=== PATIENT | male | born 2000 | race Caucasian/White ===

== ENCOUNTER 2023-07-18 12:05 | Outpatient (CLI) | payer OTHER, SELFPAY ==
--- NOTE | ~2023-07-18 | XR_ITS ---
EXAM: XR knee LT 3V DATE: 07/18/2023 12:24 HISTORY: S89.92XA - Unspecified injury of left lower leg, initial ... . COMPARISON: None available. FINDINGS: Normal mineralization. No fracture or dislocation. No lytic or blastic lesion. Joint space s are maintained. No erosion or periosteal change. Soft tissues within normal limits. IMPRESSION: Normal left knee radiograph findings. Reviewed, dictated and finalized at location K. 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
== END 2023-07-18 12:06 ==
LOC: MICIMG 12:08
PROVIDERS: PCP Nurse Practitioner Adult Health; Visit Provider Nurse Practitioner Adult Health
DX: S89.92XA Unspecified injury of left lower leg, initial encounter (principal)
CPT/HCPCS: 73562

== ENCOUNTER 2023-07-29 13:56 | Outpatient (CLI) | payer OTHER, SELFPAY ==
--- NOTE | ~2023-07-29 | CT_ITS ---
EXAMINATION: CT knee LT wo con DATE: 07/29/2023 14:14 INDICATION: Unspecified injury to the left lower leg TECHNIQUE: High resolution computed tomography (CT) of the left knee was performed without intravenou s contrast. Additional sagittal and coronal reconstructions were performed. Automated exposure contro l and iterative reconstruction technique were employed. The dose-length product was 716.59 mGy-cm. COMPARISON: None FINDINGS: Alignment is normal. No fracture. Joint spaces appear normal on nonweightbearing imaging with no oste ophytosis. No joint effusion. Soft tissues are unremarkable. IMPRESSION: 1. Normal CT of the left knee. Reviewed, dictated and finalized at location B.
== END 2023-07-29 13:57 | disposition home or self-care (01) ==
LOC: ANHIMG 13:58
PROVIDERS: PCP Family Medicine; Visit Provider Nurse Practitioner Adult Health
DX: S89.92XA Unspecified injury of left lower leg, initial encounter (principal); X58.XXXA Exposure to other specified factors, initial encounter
CPT/HCPCS: 73700

== ENCOUNTER 2023-10-01 07:06 | Outpatient (CLI) | payer OTHER, SELFPAY ==
--- NOTE | 2023-10-06 16:05 | WPDHOLTEREM ---
Holter/Event Monitor Holter/Event Monitor Date of procedure: 10/01/23 Holter/Event Procedure: 48 Hr Holter Monitor Indications: Chest pain Conclusion: 1. 48 hour holter monitor on 10/01/23. 2. Underlying rhythm is sinus rhythm. HR range 43-132 bpm; average HR 69 bpm. HR at 43 bpm was at 05:03. HR at 132 bpm was at 18:51. 3. There are 15 premature supraventricular complexes and 1 supraventricular couplet. No supraventricular tachycardia. 4. There are 62 premature ventricular complexes. No ventricular tachycardia. 5. No sinoatrial or atrioventricular blocks. No significant pauses greater than 2 seconds. 6. Patient reports symptoms of skipped beats and chest pain which demonstrate sinus rhythm, HR range 70-83 bpm.
== END 2023-10-01 10:48 ==
PROVIDERS: PCP Family Medicine; Visit Provider Physician Assistant Medical
DX: R07.89 Other chest pain (principal); R00.2 Palpitations
CPT/HCPCS: 93225; 93226

== ENCOUNTER 2023-11-14 09:00 | Outpatient (CLI) | payer OTHER, SELFPAY ==
--- NOTE | ~2023-11-14 | XR_ITS ---
EXAMINATION: XR_[id number]_CR DATE: 11/14/2023 09:27 INDICATION: Right knee pain TECHNIQUE: Standing AP and lateral views of the right knee were obtained COMPARISON: None. FINDINGS: Alignment is normal. No fracture. Joint spaces are normal. Soft tissues are unremarkable. No right kn ee joint effusion. IMPRESSION: 1. Normal right knee radiographs. Reviewed, dictated and finalized at location A.
== END 2023-11-14 09:01 ==
PROVIDERS: PCP Family Medicine; Visit Provider Nurse Practitioner Adult Health
DX: M25.561 Pain in right knee (principal)
CPT/HCPCS: 73560

== ENCOUNTER 2023-12-23 09:58 | Outpatient (CLI) | payer OTHER, SELFPAY ==
--- NOTE | 2023-12-23 10:16 | EST_ITS ---
Patient Info Name: Fabio Roblero Age: 23 years : 2000 Gender: Male Ht: 71 in Wt: 200 lbs BSA: 2.15 m2 HR: 67 bpm BP: 98 / 66 mmHg Heart Rhythm: Sinus Rhythm Exam Date: 12/23/2023 10:25 AM Exam Location: Echo Lab Patient Status: Outpatient Admit Date: 12/23/2023 Staff Ordering Physician: Jason Bettencourt DO Attending Provider: Jason Bettencourt DO Exercise Technologist: Tere Contreras CT Exercise Physician: Jason Bettencourt DO Exam Type: CA stress test treadmill Study Info A treadmill exercise stress test was performed. Summary 1. 1. Negative Bhavik exercise stress test for ischemic ST changes by ECG criteria. 2. 2. Good functional capacity, achieving 11 METs of workload. 3. 3. Appropriate HR response to exercise. 4. 4. Appropriate HR recovery at 1 minute post exercise. 5. 5. No imaging with stress testing. 6. 6. Patient informed of the above results. Protocol: Bhavik Stress ECG Details Stage: REST Duration (min): 1 min : 12 sec Speed (mph): 0.0 Grade (%): 0 HR (bpm): 66 SBP (mmHg): 98 DBP (mmHg): 66 METS: --- Stage: REST Duration (min): 9 min : 1 sec Speed (mph): 0.0 Grade (%): 0 HR (bpm): 74 SBP (mmHg): 98 DBP (mmHg): 66 METS: --- Stage: STAGE 1 Duration (min): 1 min : 0 sec Speed (mph): 1.7 Grade (%): 10 HR (bpm): 100 SBP (mmHg): 98 DBP (mmHg): 66 METS: --- Stage: STAGE 1 Duration (min): 2 min : 0 sec Speed (mph): 1.7 Grade (%): 10 HR (bpm): 105 SBP (mmHg): 98 DBP (mmHg): 66 METS: --- Stage: STAGE 1 Duration (min): 3 min : 0 sec Speed (mph): 1.7 Grade (%): 10 HR (bpm): 109 SBP (mmHg): 124 DBP (mmHg): 65 METS: --- Stage: STAGE 2 Duration (min): 1 min : 0 sec Speed (mph): 2.5 Grade (%): 12 HR (bpm): 117 SBP (mmHg): 124 DBP (mmHg): 65 METS: --- Stage: STAGE 2 Duration (min): 2 min : 0 sec Speed (mph): 2.5 Grade (%): 12 HR (bpm): 119 SBP (mmHg): 133 DBP (mmHg): 63 METS: --- Stage: STAGE 2 Duration (min): 3 min : 0 sec Speed (mph): 2.5 Grade (%): 12 HR (bpm): 127 SBP (mmHg): 133 DBP (mmHg): 63 METS: --- Stage: STAGE 3 Duration (min): 1 min : 0 sec Speed (mph): 3.4 Grade (%): 14 HR (bpm): 140 SBP (mmHg): 155 DBP (mmHg): 62 METS: --- Stage: STAGE 3 Duration (min): 2 min : 0 sec Speed (mph): 3.4 Grade (%): 14 HR (bpm): 157 SBP (mmHg): 155 DBP (mmHg): 62 METS: --- Stage: STAGE 3 Duration (min): 3 min : 0 sec Speed (mph): 3.4 Grade (%): 14 HR (bpm): 163 SBP (mmHg): 159 DBP (mmHg): 70 METS: --- Stage: STAGE 4 Duration (min): 0 min : 30 sec Speed (mph): 4.2 Grade (%): 16 HR (bpm): 171 SBP (mmHg): 159 DBP (mmHg): 70 METS: --- Stage: RECOVERY Duration (min): 0 min : 29 sec Speed (mph): 0.0 Grade (%): 0 HR (bpm): 167 SBP (mmHg): 159 DBP (mmHg): 70 METS: --- Stage: BAKARI
== END 2023-12-23 09:59 | disposition home or self-care (01) ==
LOC: ANHCARD 09:59
PROVIDERS: PCP Family Medicine; Visit Provider Internal Medicine Cardiovascular Disease
DX: R07.89 Other chest pain (principal)
CPT/HCPCS: 93017

== ENCOUNTER 2024-07-21 10:00 | Emergency (ER) | payer OTHER, SELFPAY ==
--- NOTE | ~2024-07-21 | XR_ITS ---
EXAMINATION: XR chest 2V DATE: 07/21/2024 11:02 INDICATION: Midsternal chest pain and dizziness TECHNIQUE: PA and lateral views of the chest were obtained. COMPARISON: Chest radiograph dated 08/06/2018 FINDINGS: The lungs remain clear with no focal airspace opacities, pulmonary edema, pleural effusion or pneumot horax. The cardiomediastinal silhouette is normal. Visualized bones and soft tissues are unremarkable . IMPRESSION: 1. No acute cardiopulmonary disease. Reviewed, dictated and finalized at location L. PRESIDENT PAYER
--- NOTE | 2024-07-21 10:07 | ECG_ITS ---
Test Date: 2024-07-21 10:13:20 Measurements Intervals [place] Rate: 81 P: 66 RI: 138 QRS: 67 QRSD: 92 T: 64 QT: 329 QTc: 383 Interpretive Statements SINUS RHYTHM No previous ECG available for comparison Electronically Signed On 07-21-2024 14:04:38 [employer] SCIENTIST by Jon Villarreal M.D.
[2024-07-21 10:15] VITALS: BP 129/77; PULSE 82; RESP 16; TEMP 36.2; O2SAT 100
[2024-07-21 10:24] LABS: Basophils Percent Auto 0.4 % (0.2-1.2); Eosinophils Absolute Auto 0.2 K/mm3 (0-0.3); Eosinophils Percent Auto 2.8 % (0-4.4); Hematocrit 49.1 % (42.0-52.0); Hemoglobin 16.6 g/dL (14.0-18.0); Immature Granulocyte Absolute 0.02 K/mm3 (0.00-0.031); Immature Granulocyte Percent A 0.4 % (0-0.5); Lymphocytes Absolute Auto 1.67 K/mm3 (0.9-3.2); Lymphocytes Percent Auto 30.8 % (18.3-44.2); Mean Corpuscular HGB Conc 33.8 g/dl (32-36); Mean Corpuscular Hemoglobin 31.6 pg (26-34); Mean Corpuscular Volume 93.5 fl (80-100); Mean Platelet Volume 10.1 fl (7.4-10.4); Monocytes Absolute Auto 0.3 K/mm3 (0.1-0.6); Monocytes Percent Auto 5.2 % (2.6-8.5); Neutrophils Absolute Auto 3.3 K/mm3 (1.3-6.7); Neutrophils Percent Auto 60.4 % (45.5-73.1); Platelet Count Result 240 k/mm3 (150-375); Red Blood Count 5.25 M/mm3 (4.6-6.20); Red Cell Distribution Width 13.2 % (11.5-14.5); White Blood Count 5.4 K/mm3 (4.5-10.0)
[2024-07-21 10:34] LABS: Alanine Aminotransferase 40 U/L (6-50); Albumin Level 4.7 g/dL (3.5-5.1); Alkaline Phosphatase 78 U/L (38-126); Anion Gap 9 mmol/L (4-12); Aspartate Amino Transferase 25 U/L (17-59); Bilirubin,Total 0.7 mg/dL (0.2-1.3); Blood Urea Nitrogen 11 mg/dL (9-20); Calcium 9.9 mg/dL (8.4-10.2); Carbon Dioxide 28 mmol/L (22-30); Chloride 102 mmol/L (98-107); Estimated CRCL calculation 119 ml/min; Estimated Glomerular Filt Rate > 60; Glucose 114 mg/dL (65-110); Lipase 200 U/L (23-300); Potassium 3.7 mmol/L (3.4-5.0); Sodium 139 mmol/L (137-145)
[2024-07-21 10:45] LABS: Prothrombin Time 13.3 Seconds (11.1-14.7); Troponin I < 0.012 ng/mL (0.000-0.034)
[2024-07-21 10:46] LABS: Partial Thromboplastin Time 24.9 Seconds (22.3-36.8)
--- OUTSIDE RECORDS SUMMARY | 2024-07-21 11:17 | XMS_ITS ---
Author Organization [facility] Address [facility] [facility] [address] [place] [address] Care Team Providers Care Dairy Manager Name Role Phone JUDE OTERO MDSHTI Primary Care Provider Enedina Melvin Unavailable [phone] REASON FOR VISIT CAROL Rashid Social History Sex Assigned At : Social History Observation Description Sex Assigned At Male Encounters Encounter [facility] Date [facility] [address] [facility] [address] [place] [address] 07/12/2024 Enedina Howell Plan Of Treatment Next Appt Details Provider Name:Enedina Howell, 08/08/2024 08:15:00 AM, [address], [facility] [address], [place], [address], Progress Notes * Fabio ROBLERO IIDOB: [birth year] (23 yo M)Acc No.[id number]:07/12/2024 Patient: Fabio MONIQUE II :2000 A ge:23 Y S ex:Male Address:[address], [place], [address] * true * Date: Generated for Ashwini nereida/Faketang/eTransmitting on: 0 07/21/2024 11:17 AM EPIDEMIOLOGIST
--- OUTSIDE RECORDS SUMMARY | 2024-07-21 11:18 | XMS_ITS ---
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 Name Role Phone SHANNA SOMMERS JENNY Primary Care Provider Unavail able Enedina Howell Unavailable [phone] Allergies No Known Allergies REASON FOR VISIT DOING PAPER, advance care planning, Depression screening positive, Follow up psychological reason Medications Medication SIG (Take, Route, Frequency, Duration) Notes Start Date End Date Status Qelbree 200 MG 1 capsule Orally Onc e a day for 30 days 07/11/2024 09/09/2024 Active ARIPiprazole 5 MG 1 tablet Orally Once a day for 30 days Active Topiramate 50 MG TAKE 1/2 TABLET BY MOUTH TWICE DAILY Oral for 30 Days Unknown Propranolol HCl 10 MG 1 tablet Orally twice a day for 30 days As needed Active traZODone HCl 50 MG 1 tablet at bedtime as needed Orally Once a day for 90 days Active Rizatriptan Benzoate 10 MG TAKE 1-2 TABL ETS BY MOUTH AT THE ONSET OF A MIGRAINE. MAY REPEAT AFTER 2 HOURS. DO NOT EXCEED 3 TABLETS IN 24 HOURS Oral for 6 Days Unknown Meloxicam 7.5 MG Oral for 20 Days Unknown Propranolol HCl 10 MG 1 tablet Orally twice a day for 30 days As needed for anxiety Active Social History Tobacco Use: Social History Observation Description Date Details (start date - stop date) Never Smoker NA - NA Sex Assigned At : Social History Observation Description Sex Assigned At Male Tobacco Control (Standard) Question Answer Notes Tobacco use: Nonsmoker AUDIT-C (Standard) Question Answer Notes Points 8 Did you have a drink contain ing alcohol in the past year? Yes How often did you have six o r more drinks on one occasion in the past year? 2 to 4 times a month (2 points) How many drinks did you have on a typical day when you were drinking in the past year? 7 to 9 drinks (3 points) How often did you have a dri nk containing alcohol in the past year? 2 to 3 times a week (3 points) Problems Problem Type SNOMED Code ICD Code Onset Dates Problem Status W/U Status Risk Notes Problem Attention deficit hyperactivity disorder (812169014) ADHD (attention deficit hyperactivity disorder), combined type (F90.2) Active confirmed Vital Signs Blood pressure systolic 121 mm Hg 07/11/19 25 Blood pressure diastolic 77 mm Hg 025 Heart Rate 57 /min 07/11/2024 Height 71 in 07/11/2024 Weight 187 lbs 07/11/2024 BMI 26.08 kg/m2 07/11/2024 Height-cm 180.34 cm 07/11/2024 Weight-kg 84.82 kg 07/11/2024 Encounters Encounter Location Date Provider Diagnosis [facility] [address] [address] [address] [address] 07/11/2024 Enedina Howell MDD (major depressiv e disorder), recurrent severe, 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 Thus routine monitoring of weight, metabolic labs, etc. is indicated. A general rank ordering of antipsychotics that have the greatest to the least risk of metabolic effects is olanzapine, quetiapine, risperidone, ziprasidone, and aripiprazole. However, weight gain can occur with all of these drugs and considerable variability exists among patients receiving the same drug regarding the risk of metabolic effects. Anti-psychotic agents not only increase the risk of metabolic disorder, they also increase the risk of CVA, akathisia, and movement disorders including EPS or tardive dyskinesia (more common with first generation antipsychotics) and more. 07/11/2024 SAVANNA (generalized anxiety disorder) (ICD-10 - F41.1) 07/11/2024 Primary insomnia (ICD-10 - F51.01) Sleep study approved by insurance, pending scheduling 07/11/2024 ADHD (attention deficit hyperactivity disorder), combined type (ICD-10 - F90.2) Electronic Prior Authorization was requested for Qelbree 200 MG Capsule Extended Release 24 Hour. Provider can order medication once approval received. 07/11/2024 PTSD (post-traumatic stress disorder) (ICD-10 - F43.10) 07/11/2024 Other Depression improving, continue Abilify 5mg daily. Monitor anxiety- encouraged to start propranolol PRN, has yet to start this. Discontinue quetiapine due to sedation, await sleep study. Start Qelbree 200mg daily for ADHD management Patient educated on all medications including potential benefits, side effects, risks. Educated on proper dosing schedule and importance of compliance. Referred to counseling -Assessment and treatment plan reviewed with patient. -Compliance with treatment plan importance discussed. -Discussed the risks/benefits of this medication -Discussed medication side effects. -Contact office if symptoms worsen. -Discussed that it can take up to 6-8 weeks to see full therapeutic effects of psychotropic medications. -Crisis prevention hotline 988. Plan Of Treatment Medication Medication Name Sig Start Date Stop Date Notes QUEtiapine Fumarate 25 MG 1-2 tablet at bedtime Oral Once a day for 30 days Qelbree 200 MG 1 capsule Orally Onc e a day for 30 days 07/11/2024 09/09/2024 ARIPiprazole 5 MG 1 tablet Orally Once a day for 30 days Propranolol HCl 10 MG 1 tablet Orally tw ice a day for 30 days Treatment Notes Assessment Notes MDD (major depressive disord er), recurrent severe, without psychosis Second generation antipsychotics (SGAs) have metabolic syndrome issues with weight gain, increase in prolactin, increased waist circumference, increased lipids, and increased glucose. Thus routine monitoring of weight, metabolic labs, etc. is indicated. A general rank ordering of antipsychotics that have the greatest to the least risk of metabolic effects is olanzapine, quetiapine, risperidone, ziprasidone, and aripiprazole. However, weight gain can occur with all of these drugs and considerable variability exists among patients receiving the same drug regarding the risk of metabolic effects. Anti-psychotic agents not only increase the risk of metabolic disorder, they also increase the risk of CVA, akathisia, and movement disorders including EPS or tardive dyskinesia (more common with first generation antipsychotics) and more. Primary insomnia Sleep study approved by insurance, pending scheduling ADHD (attention deficit hype ractivity disorder), combined type Electronic Prior Authorization was requested for Qelbree 200 MG Capsule Extended Release 24 Hour. Provider can order medication once approval received. Other Depression improving, continue Abilify 5mg daily. Monitor anxiety- encouraged to start propranolol PRN, has yet to start this. Discontinue quetiapine due to sedation, await sleep study. Start Qelbree 200mg daily for ADHD management Patient educated on all medications including potential benefits, side effects, risks. Educated on proper dosing schedule and importance of compliance. Referred to counseling Next Appt Details Follow Up: 4 Weeks, Reason: medication follow up Provider Name:Enedina Howell, 08/08/2024 08:15:00 AM, [facility] [facility] [address], [facility] [address], [place], [address], Progress Notes * Fabio ROBLERO IIDOB: [birth year] (23 yo M)Acc No.[id number]:07/11/2024 Patient: Fabio MONIQUE II Provider: Steph HOWELL PMHNP :2000 A ge:23 Y S ex:Male Date:07/11/2024 Address:[address] [place] [address] Pcp:JENNY OTERO MD Subjective: * Chief Complaints: * D OING PAPERAdvance care planningDepression screening positiveFollow up psychological reason * HPI: H istory of Presenting Problem: Anxiety f or 2 020 R ates anxiety 9/10 with 10 being most severe. . Depression f or 2 020 R ates depression 3-4/10 with 10 being most severe. . Mood lability n o hx willa. Psychosis n o hx psychosis. Sleep disturbance w ith chronic insomnia, with difficulty falling asleep, with difficulty staying asleep. Suicidal ideation d enies. ADHD A DHD eval not supportive of DX. has difficulty sustaining attention in tasks or play activity, easily distracted by extraneous stimuli, forgetful in daily activities, loses things necessary for tasks or activities. Psychotherapy E darlin . PTSD n ightmares, flashbacks, Unwanted upsetting memories.? Here for follow up. Abilify started last apt for depression. Reports I am doing okay I guess . Stressed over a couple classes, physics lab grade is poor. Reports depression is improving with Abilify. Although continues to report heightened anxiety, I am always on the verge of a panic attack .? Sleep- has sleep study in two weeks. Getting about 8 hours nightly. Appetite is good, eating two meals and a snack daily. P ast Psychiatric Hospitalizations: Social hx: Single, lives with parents. Relationship with parents is strained. Works in [employer] for [employer]. Medical hx: Migraines Legal hx: denies Past psychiatric hx- Past [facility] admissions/IOP/PHP: one admission in [place] in 2021. Previous suicide attempts: denies Previous self-harming: denies Family psychiatric hx: father-anxiety; paternal grandparents-anxiety; mother- anxiety. Previous medications: fluoxetine, Vraylar, duloxetine, sertraline, buspar, lamictal (ineffective), Wellbutrin (ineffective, decreased appetite), hydroxyzine (drowsiness) Substance use hx: denies Nicotine: nicotine pouches 3mg Alcohol: 7-12 drinks weekly. D epression Screening: SAVANNA-7 (2018 Edition) F eeling nervous, anxious, or on edge N early every day N ot being able to stop or control worrying?Nearly every day W orrying too much about different things N early every day T rouble relaxing N early every day B eing so restless that it is hard to sit still M ore than half the days B ecoming easily annoyed or irritable N early every day F eeling afraid as if something awful might happen N ot at all I f you checked any problems, how difficult have they made it for you to do your work, take care of things at home, or get along with other people? E xtremely difficult [place]-Suicide Severity Rating Scale: Suicide Risk (CSRS-screener) i n the past one month Have you wished you were or wished you could go to sleep and not wake up? Y es i n the past one month Have you actually had any thoughts of killing yourself? N o D epression screening: PHQ-9 L ittle interest or pleasure in doing things?Nearly every day F eeling down, depressed, or hopeless S ever T rouble falling or staying asleep, or sleeping too much N early every day F eeling tired or having little energy N early every day P oor appetite or overeating N ot at all F eeling bad about yourself or that you are a failure, or have let yourself or your family down S ever T rouble concentrating on things, such as reading the newspaper or watching television N early every day M oving or speaking so slowly that other people could have noticed; or the opposite, being so fidgety or restless that you have been moving around a lot more than usual N ot at all T houghts that you would be better off or of hurting yourself in some way S (Consider Suicide Assessment Risk) T otal Score 1 5 I nterpretation M oderately Severe Depression Intervention D epression Screening Findings P ositve F ollow-Up for Depression M ental health treatment assessment, Patient follow-up to return when and if necessary S uicide Risk Assessment Performed _ A dditional Evaluation for Depression P sychiatric interview and evaluation N vernon of the standardized tool used for adult depression screening: P atient Health Questionnaire (PHQ-9) * ROS: P sychiatric: Patient denies s uicidal thoughts, willa, psychosis. P atient complains of d epressed mood, anxiety, difficulty concentrating. C whit S ee HPI for details. P erformance Met: N ormal blood pressure reading documented, follow-up not required ( G8783). * Medical History: * Surgical History: * Hospitalization/Major Diagno stic Procedure: * Family History: F ather: Anxiety Disorder. M other: None. S ister: Anxiety Disorder,Major Depressive Episode. father-anxiety; paternal grandparents-anxiety; mother-anxiety. * Social History: T obacco Use: T obacco Control (Standard) T obacco use: N onsmoker D rug/Alcohol: D rugs H ave you used drugs other than those for medical reasons in the past 12 months? N o AUDIT-C (Standard) D id you have a drink containing alcohol in the past year? Y es H ow often did you have six or more drinks on one occasion in the past year? 2 to 4 times a month (2 points) H ow many drinks did you have on a typical day when you were drinking in the past year? 7 to 9 drinks (3 points) H ow often did you have a drink containing alcohol in the past year? 2 to 3 times a week (3 points) P oints 8 M iscellaneous: S afety issues A re there any firearms in the house? 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 Advance Care Planning A re you your own decision-maker Y es D o you have Power of Outsole Rounder for Health or Medical? Y es D o you have a power of bankruptcy attorney for health??Yes D o you have power of bankruptcy attorney for Medical ??Yes I f yes, then please bring the POA paperwork so that we can upload it. Y es S ocial History: H ousemaria l M arital Status: S benjamin N umber of Adults in household: 3 N umber of Children in Household: 0 L evel of Education: N ot Finished College * Medications: T akingtraZODone HCl 50 MG Tablet 1 tablet at bedtime as needed Orally Once a day ARIPiprazole 5 MG Tablet 1 tablet Orally Once a day QUEtiapine Fumarate 25 MG Tablet 1-2 tablet at bedtime Oral Once a day Propranolol HCl 10 MG Tablet 1 tablet Orally twice a day As needed for anxietyTaking traZODone HCl 50 MG Tablet 1 tablet at bedtime as needed Orally Once a day Taking ARIPiprazole 5 MG Tablet 1 tablet Orally Once a day Taking QUEtiapine Fumarate 25 MG Tablet 1-2 tablet at bedtime Oral Once a day Taking Propranolol HCl 10 MG Tablet 1 tablet Orally twice a day As needed for anxietyUnknownMeloxicam 7.5 MG Tablet Oral Rizatriptan Benzoate 10 MG Tablet TAKE 1-2 TABLETS BY MOUTH AT THE ONSET OF A MIGRAINE. MAY REPEAT AFTER 2 HOURS. DO NOT EXCEED 3 TABLETS IN 24 HOURS Oral Topiramate 50 MG Tablet TAKE 1/2 TABLET BY MOUTH TWICE DAILY Oral Medication List reviewed and reconciled with the patientUnknown Meloxicam 7.5 MG Tablet Oral Unknown Rizatriptan Benzoate 10 MG Tablet TAKE 1-2 TABLETS BY MOUTH AT THE ONSET OF A MIGRAINE. MAY REPEAT AFTER 2 HOURS. DO NOT EXCEED 3 TABLETS IN 24 HOURS Oral Unknown Topiramate 50 MG Tablet TAKE 1/2 TABLET BY MOUTH TWICE DAILY Oral Medication List reviewed and reconciled with the patient * Allergies: N .K.D.A.no[Allergies Verified] Objective: * Vitals: B P:121/77mm Hg, HR:57/min, Wt:187lbs, Wt-k.82 kg, Ht: 71 in, Ht-cm: 180.34 cm, BMI:26.08Index, Body Surface Area: 2.06. * Examination: P sychiatry: Appearance: w ell-groomed. Abnormal body movements: n one. Affect / mood: d epressed, sad. Attention: g ood. Attitude: c ooperative. Homicidal ideation: n one. Suicidal ideation: n one. Degree of awareness of surroundings: w ithin normal limits.? Delusions: n o. Hallucinations: n o. Insight: g ood. Judgement: g ood. Orientation: a wake, alert and oriented x 3. Perceptual disorders: n o perceptual disorder noted. Psychomotor activity: w ithin normal range. Speech / language: n ormal rate, volume, and articulation (RVR), clear and coherent. Thought content: a ppropriate. Thought process: i ntact. Assessment: * Assessment: 1. M DD (major depressive disorder), recurrent severe, without psychosis - F33.2 (Primary) 2 . G AD (generalized anxiety disorder) - F41.1 3 . P rimary insomnia - F51.01 4 . A DHD (attention deficit hyperactivity disorder), combined type - F90.2 5 . P TSD (post-traumatic stress disorder) - F43.10 Plan: * Treatment: 2. G AD (generalized anxiety disorder) Continue Propranolol HCl Tablet, 10 MG, 1 tablet, Orally, twice a day As needed, 30 days, 60 Tablet, Refills 1. 3. P rimary insomnia Stop QUEtiapine Fumarate Tablet, 25 MG, 1-2 tablet at bedtime, Oral, Once a day, 30 days, 60 Tablet. Notes: Sleep study approved by insurance, pending scheduling 4. A DHD (attention deficit hyperactivity disorder), combined type Start Qelbree Capsule Extended Release 24 Hour, 200 MG, 1 capsule, Orally, Once a day, 30 days, 30 Capsule, Refills 1. Notes: Electronic Prior Authorization was requested for Qelbree 200 MG Capsule Extended Release 24 Hour. Provider can order medication once approval received. 5. O thers Notes: Depression improving, continue Abilify 5mg daily. Monitor anxiety- encouraged to start propranolol PRN, has yet to start this. Discontinue quetiapine due to sedation, await sleep study. Start Qelbree 200mg daily for ADHD management Patient educated on all medications including potential benefits, side effects, risks. Educated on proper dosing schedule and importance of compliance. Referred to counseling Clinical Notes: -Assessment and treatment plan reviewed with patient. -Compliance with treatment plan importance discussed. -Discussed the risks/benefits of this medication -Discussed medication side effects. -Contact office if symptoms worsen. -Discussed that it can take up to 6-8 weeks to see full therapeutic effects of psychotropic medications. -Crisis prevention hotline 988. * Procedure Codes: G 8783 NORMAL BP READING DOC F/U NOT [id number] BEHAV ASSMT W/SCORE & DOCD/STAND [id number] VISIT COMPLEXITY INHERENT TO ONGOING CARE RELATED TO A PATIENT'S SINGLE, SERIOUS CONDITION OR A COMPLEX [id number] CLIN DEPRESSION SCREEN [id number] MOST RECENT SYSTOLIC BP < 140MM [id number] MOST RECENT DIASTOLIC BP < 90MM HG * Preventive Medicine: Counseling: A dvance Care Planning Date of last Advance Care Planning:?____ MIPS * Follow Up: 4 Weeks (Reason: medication follow up) * Billing Information: * Visit Code: 61390 OFFICE OUTPATIENT VISIT 25 MINUTES DETAILED HISTORY AND EXAM/MODERATE MEDICAL DECISION MAKING. * Procedure Codes: G8783 NORMAL BP READING DOC F/U NOT RQR. 81484 BEHAV ASSMT W/SCORE & DOCD/STAND INSTRUMENT. G2211 VISIT COMPLEXITY INHERENT TO ONGOING CARE RELATED TO A PATIENT'S SINGLE, SERIOUS CONDITION OR A COMPLEX CONDITION. G8431 CLIN DEPRESSION SCREEN DOC. G8752 MOST RECENT SYSTOLIC BP < 140MM HG. G8754 MOST RECENT DIASTOLIC BP < 90MM HG. 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 Here for follow up. Abilify started last apt for depression. Reports I am doing okay I guess . Stressed over a couple classes, physics lab grade is poor. Reports depression is improving with Abilify. Although continues to report heightened anxiety, I am always on the verge of a panic attack . Sleep- has sleep study in two weeks. Getting about 8 hours nightly. Appetite is good, eating two meals and a snack daily. Depression Rates depression 3-4 /10 with 10 being most severe. Suicidal ideation denies Sleep disturbance with chronic insomni a, with difficulty falling asleep, with difficulty staying asleep Psychosis no hx psychosis Mood lability no hx willa ADHD ADHD eval not suppor tive of DX. has difficulty sustaining attention in tasks or play activity, easily distracted by extraneous stimuli, forgetful in daily activities, loses things necessary for tasks or activities Psychotherapy Tawnya PTSD nightmares, flashbac ks, Unwanted upsetting memories Past Psychiatric Hospitalizations Social hx: Single, lives with parents. Relationship with parents is strained. Works in [employer] for [employer]. Medical hx: Migraines Legal hx: denies Past psychiatric hx- Past [facility] admissions/IOP/PHP: one admission in [place] in 2021. Previous suicide attempts: denies Previous self-harming: denies Family psychiatric hx: father-anxiety; paternal grandparents-anxiety; mother-anxiety. Previous medications: fluoxetine, Vraylar, duloxetine, sertraline, buspar, lamictal (ineffective), Wellbutrin (ineffective, decreased appetite), hydroxyzine (drowsiness) Substance use hx: denies Nicotine: nicotine pouches 3mg Alcohol: 7-12 drinks weekly. Depression screening PHQ-9 Little inte rest or pleasure in doing things: Nearly every day Feeling down, depressed, or hopeless: Se veral days Trouble falling or staying asleep, or sl eeping too much: Nearly every day Feeling tired or having little energy: N early every day Poor appetite or overeating: Not at all Feeling bad about yourself o r that you are a failure, or have let yourself or your family down: Several days Trouble concentrating on thi ngs, such as reading the newspaper or watching television: Nearly every day Moving or speaking so slowly that other people could have noticed; or the opposite, being so fidgety or restless that you have been moving around a lot more than usual: Not at all Thoughts that you would be b marilee off or of hurting yourself in some way: Several days (Consider Suicide Assessment Risk) Total Score: 15 Interpretation: Moderately Severe Depres linsey Intervention Depression Screening Findings: P ositve Follow-Up for Depression: [facility] treatment assessment, Patient follow-up to return when and if necessary Suicide Risk Assessment Performed: Additional Evaluation for Depression: Ps ychiatric interview and evaluation Name of the standardized too l used for adult depression screening:: Patient Health Questionnaire (PHQ-9) Depression Screening SAVANNA-7 (2018 Edition) Feelin g nervous, anxious, or on edge: Nearly every day Not being able to stop or control worryi ng: Nearly every day Worrying too much about different things : Nearly every day Trouble relaxing: Nearly every day Being so restless that it is hard to sit still: More than half the days Becoming easily annoyed or irritable: Ne kael every day Feeling afraid as if something awful nghia ht happen: Not at all If you checked any problems, how difficult have they made it for you to do your work, take care of things at home, or get along with other people?: Extremely difficult [place]-Suicide Severity Rating Scale Suicide Risk (CSRS-screener) in the past one month Have you wished you were or wished you could go to sleep and not wake up?: Yes in the past one month Have y ou actually had any thoughts of killing yourself?: No Examination Category Sub-Category Detail Notes Category Not es Psychiatry Appearance: well-groomed Attitude: cooperative Psychomotor activity: within normal rang e Abnormal body movements: none Attention: good Degree of awareness of surroundings: wit hin normal limits Orientation: awake, alert and mihir ented x 3 Affect / mood: depressed, sad Speech / language: normal rate, volume, and articulation (RVR), clear and coherent Insight: good Judgement: good Thought process: intact Thought content: appropriate Perceptual disorders: no perceptual diso rder noted Suicidal ideation: none Homicidal ideation: none Delusions: no Hallucinations: no
--- OUTSIDE RECORDS SUMMARY | 2024-07-21 11:18 | XMS_ITS | Clinical Summary ---
Author Organization [facility] on Address [address] [place] [address] Phone Care Team Providers Care Polysomnography Technologist Name Role Phone Unavailable Primary Care Provider Unavailabl e Allergies No known active allergies Medications cetirizine (ZYRTEC) 10 mg tablet Take 10 mg by mouth daily. Active albuterol (PROVENTIL,VENT EMMA) 2.5 mg /3 mL (0.083 %) Solution for NebulizationInd ications:Acute bronchitis due to other specified organisms Take 2.5 mg by inhalation every 4 hours as needed for Shortness of Breath. Active Active Problems No known active problems Immunizations Immunization Administration Dates Next Due (ADACEL/BOOSTRIX)(10 YR UP) TDAP VACCINE, 0.5ML, IM 09/04/2009 (BEXSERO)(10-25 YR) MENINGOC OCCAL RECOMBIANT PROTEIN AND OUTER MEMBRANE VESICLE VACCINE, SEROGROUP B MENB-4C, 2 DOSE IM 03/17/2017,01/01/2016 (GARDASIL 9)(9-45 YRS) HUMAN PAPILLOMAVIRUS VACCINE, TYPES 6, 11, 16, 18, 31, 33, 45, 52, 58, NONAVALENT (9VHPV), 2 OR 3 DOSE, IM 05/20/2017 08/18/2017 (GARDASIL)(9-45 YRS) HUMAN PAPILLOMAVIRUS VACCINE, TYPES 6, 11, 16, 18, QUADRIVALENT (4VHPV), 3 DOSE, IM 01/01/2016 (INFANRIX)(6 WKS-6 YRS) DIPT HERIA, TETANUS TOXOIDS, AND ACCELLULAR PERTUSSIS VACCINE (DTAP), 0.5 ML IM 09/15/2005,04/18/2000,02/23/1999,12/16,1998 (IPOL)(6 WKS AND UP) POLIOVI ROSALBA VACCINE, INACTIVATED (IPV), 3 DOSE, SUBCUT OR IM 09/15/2005,06/29/1999,1998,10/16 (M-M-R II/PRIORIX)(12 MO UP) MEASLES, MUMPS AND RUBELLA VIRUS VACCINE, 0.5 ML IM/SUBCUT 09/16/2003,12/14/1999 (VARIVAX)(12 MOS UP)VARICELL A VIRUS VACCINE (PF) 0.5 ML, SUB CUT 09/05/2010,09/14/2000 HIB, Unspecified Formulation 12/14/1999, 02/23/1999,1998,10/16 Hepatitis A Vaccine 11/29/2013,09/14/2012 Hepatitis B Vaccine 02/23/1999,1998,1998 INFLUENZA VACCINE QUADRIVALE NT 6 MOS UP PF IM 03/17/2017 Influenza Seasonal Unspecifi ed Formulation IM 03/11/2004,03/11/2003 Meningococcal A Conjugate Vaccine IM 01/01/2016 Meningococcal ACWY Vaccine, Unspecified Formulation 08/12/2011 Skin Test TB 06/13/1999 Family History Medical History Relation Name Comments Healthy Father Healthy Mother Relation Name Status Comments Father Mother Social History Tobacco Use Types Packs/Day Years Used Date Smoking Tobacco: Never Alcohol Use Standard Drinks/Week Comments No 0 (1 standard drink = 0.6 oz pur e alcohol) Sex and Gender Information Value Date Recorded Sex Assigned at Not on file Legal Sex Male 11:24 AM CDT Gender Identity Not on file Sexual Orientation Not on file Last Filed Vital Signs Vital Sign Reading Time Taken Comments Blood Pressure 115/64 03/17/2017 9:54 AM CDT Pulse 61 03/17/2017 9:54 AM CDT Temperature 37.4 C (99.4 F) 05/15/2016 1:55 PM [employer] Respiratory Rate - - Oxygen Saturation 98% 05/15/2016 1:55 PM [employer] Inhaled Oxygen Concentration - - Weight 68.9 kg (152 lb) 03/17/2017 9:54 AM CDT Height 176.5 cm (5' 9.5 ) 03/17/2017 9:54 AM CDT Body Mass Index 22.12 03/17/2017 9:54 AM CDT Plan of Treatment Health Maintenance Due Date Last Done Comments HPV VACCINES (3 - Male 3-dose series) 08/12/2017 05/20/2017, 01/01/2016 DTAP/TDAP/TD VACCINES (7 - Td or Tdap) 09/05/2019 09/04/2009, 09/15/2005, 04/18/2000, Additional history exists INFLUENZA VACCINE (#1) 2023 7, 03/11/2004, 03/11/2003 HEPATITIS B VACCINES Completed 02/23/1999, 1998, 1998 PNEUMOCOCCAL VACCINE 0-49 YEARS Aged Out No longer eligible based on patient's age to complete this topic Insurance
--- OUTSIDE RECORDS SUMMARY | 2024-07-21 11:18 | XMS_ITS | Patient Health Record ---
Author Organization [facility] [employer] Address [address] [facility] [address] [place] [address] Care Team Providers Care Signal Integrity Engineer Name Role Phone SHANNA SOMMERS, [facility] Primary Care Provider Unavail able Enedina Howell Unavailable [phone] Andres Knox Unavailable [phone] Tawnya Mcghee Unavailable [phone] Allergies No Known Allergies Results Component Value Reference Range Notes UDT Reviewed date:11/17/2023 07:48:34 PM Interpretation: Performing Lab: Notes/Report: THC neg 0 - 50 ng/ml Cocaine neg Amphetamine neg Buprenorphine (BUP) neg Secobarbital (Bar) neg Oxazepam (BZO) neg 1-rknxuijdcu-9,2-zqbmrjgk-9,3-diphenylpyrrolidine (YASHIRA P) neg Methamphetamine (MET) neg Methylenedioxymethamphetamine (MDMA) neg Morphine (MOP 300/HOU1470) neg Methadone (MTD) neg Phencyclidine (PCP) neg Nortriptyline (TCA) neg x neg Reason For Referral Reason disrupted sleep, pt requesting referral to sleep medicine Diagnosis 1 Primary insomnia (F5 1.01) Referral Organization [facility] Referring Provider First Name Enedina Referring Provider Last Name Lynda Referring Provider Speciality Nurse Prac titioner Referral Priority Routine Reason chronic insomnia, pt requesting referral to sleep medicine. Diagnosis 1 Primary insomnia (F5 1.01) Referral Organization [facility] Referring Provider First Name Enedina Referring Provider Last Name Lynda Referring Provider Speciality Nurse Prac titioner Referred Provider undefined Referral Priority Routine Medications Medication SIG (Take, Route, Frequency, Duration) Notes Start Date End Date Status traZODone HCl 50 MG 1 tablet at bedtime as needed Orally Once a day for 90 days Active Qelbree 200 MG 1 capsule Orally Onc e a day for 30 days 07/11/2024 09/09/2024 Active ARIPiprazole 5 MG 1 tablet Orally Once a day for 30 days Active Topiramate 50 MG TAKE 1/2 TABLET BY MOUTH TWICE DAILY Oral for 30 Days Unknown Rizatriptan Benzoate 10 MG TAKE 1-2 TABL ETS BY MOUTH AT THE ONSET OF A MIGRAINE. MAY REPEAT AFTER 2 HOURS. DO NOT EXCEED 3 TABLETS IN 24 HOURS Oral for 6 Days Unknown Meloxicam 7.5 MG Oral for 20 Days Unknown Propranolol HCl 10 MG 1 tablet Orally twice a day for 30 days As needed for anxiety Active Propranolol HCl 10 MG 1 tablet Orally twice a day for 30 days As needed Active Social History Tobacco Use: Social History [...] Problem Status W/U Status Risk Notes Problem [id number] Primary insomnia (F51.01) Active confirmed Problem [id number] Attention-defici t hyperactivity disorder, combined type (F90.2) Active confirmed Problem Generalized anxiety disorder (67978577) SAVANNA (generalized anxiety disorder) (F41.1) Active confirmed Problem Attention deficit hyperactivity disorder (904027422) ADHD (attention deficit hyperactivity disorder), combined type (F90.2) Active confirmed Problem Posttraumatic stress disorder (36581202) PTSD (post-traumatic stress disorder) (F43.10) Active confirmed Problem Severe recurrent major depression without psychotic features (80401385) MDD (major depressive disorder), recurrent severe, 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) Active confirmed Problem Difficulty concentrating (R41.840) Active confirmed Vital Signs Heart Rate 57 /min 07/11/2024 Height-cm 180.34 cm 07/11/2024 Blood pressure diastolic 77 mm Hg 07/11/2024 Weight-kg 84.82 kg 07/11/2024 Height 71 in 07/11/2024 Blood pressure systolic 121 mm Hg 07/11/2024 Weight 187 lbs 07/11/2024 BMI 26.08 kg/m2 07/11/2024 Procedures Procedure Date Ordered Date Performed Result Body Sit e ADHD Testing 11/12/2023 N/A Encounters Encounter Location Date Provider Diagnosis [facility] [employer] [place] [id number] [facility] [address] [address] 11/12/2023 Enedina Howell MDD (major depressiv e disorder), recurrent severe, without psychosis F33.2 ; SAVANNA (generalized anxiety disorder) F41.1 and Difficulty concentrating R41.840 [facility] [employer] [address] 11/17/2023 Andres Knox ADHD (attention deficit hyperactivity disorder), combined type 314.01 [facility] [employer] [address] 11/26/2023 Enedina Howell MDD (major depressiv e disorder), recurrent severe, without psychosis F33.2 ; SAVANNA (generalized anxiety disorder) F41.1 and Attention-deficit hyperactivity disorder, combined type F90.2 [facility] [employer] [address] 12/07/2023 Tawnya Mcghee PTSD (post-traumatic stress disorder) F43.10 ; MDD (major depressive disorder), recurrent severe, without psychosis F33.2 and SAVANNA (generalized anxiety disorder) F41.1 [facility] [employer] [address] 12/14/2023 Tawnya Hinderliter PTSD (post-traumatic stress disorder) F43.10 ; MDD (major depressive disorder), recurrent severe, without psychosis F33.2 and SAVANNA (generalized anxiety disorder) F41.1 [facility] [employer] [address] 12/24/2023 Enedina Howell MDD (major depressiv e disorder), recurrent severe, without psychosis F33.2 ; SAVANNA (generalized anxiety disorder) F41.1 and Attention-deficit hyperactivity disorder, combined type F90.2 [place] [id number] [facility] [address] [facility] [address] [place] [address] 12/24/2023 Tawnya Mcghee PTSD (post-traumatic stress disorder) F43.10 and MDD (major depressive disorder), recurrent severe, without psychosis F33.2 [place] [id number] [facility] [address] [facility] [address] [place] [address] 01/07/2024 Enedina Lynda MDD (major depressiv e disorder), recurrent severe, without psychosis F33.2 ; SAVANNA (generalized anxiety disorder) F41.1 ; Attention-deficit hyperactivity disorder, combined type F90.2 and Primary insomnia F51.01 [place] [id number] [facility] [address] [address] 01/21/2024 Enedina Lynda [address] [address] 02/25/2024 Enedina Lynda MDD (major depressiv e disorder), recurrent severe, without psychosis F33.2 ; SAVANNA (generalized anxiety disorder) F41.1 ; Attention-deficit hyperactivity disorder, combined type F90.2 and Primary insomnia F51.[address] [address] 03/24/2024 Enedina Lynda MDD (major depressiv e disorder), recurrent severe, without psychosis F33.2 ; SAVANNA (generalized anxiety disorder) F41.1 ; Attention-deficit hyperactivity disorder, combined type F90.2 and Primary insomnia F51.01 [place] [address] [facility] [address] [address] 05/03/2024 Enedina Lynda MDD (major depressiv e disorder), recurrent severe, without psychosis F33.2 ; SAVANNA (generalized anxiety disorder) F41.1 ; Attention-deficit hyperactivity disorder, combined type F90.2 and Primary insomnia F51.01 [place] [address] [facility] [address] [facility] [address] [place] [address] 06/13/2024 Enedina Lynda MDD (major depressiv e disorder), recurrent severe, without psychosis F33.2 ; SAVANNA (generalized anxiety disorder) F41.1 and Primary insomnia F51.01 [facility] [place], [facility] [address] [place] [address] 07/11/2024 Enedina Villalobosag MDD (major depressiv e disorder), recurrent severe, without psychosis F33.2 ; SAVANNA (generalized anxiety disorder) F41.1 ; Primary insomnia F51.01 ; ADHD (attention deficit hyperactivity disorder), combined type F90.2 and PTSD (post-traumatic stress disorder) F43.10 [facility] [place], [facility] [address] [place] [address] 12/08/2023 Enedina [facility], [facility] [address] [place] [address] 02/22/2024 Enedina [facility], [facility] [address] [place] [address] 07/11[facility] [address] [place] [address] 11/26/2023 Enedina [facility], [facility] [address] [place] [address] 12/10/2023 [facility] [address] [place] [address] 12/10/2023 Enedina [facility], [facility] [address] [place] [address] 12/10/2023 [facility] [address] [place] [address] 12/10/2023 Enedina [facility], [facility] [address] [place] [address] 12/15/2023 Enedina [facility], [facility] [address] [place] [address] 12/24/2023 Enedina [facility], [facility] [address] [place] [address] 07/12/2024 Enedina [facility] Assessments Encounter Date Diagnosis (ICD Code) Assessment Notes Treatment Notes Treatment Clinical Notes Section Notes 11/12/2023 MDD (major depressive disorder), recurrent severe, without psychosis (ICD-10 - F33.2) Decrease duloxetine to 40 mg daily due to ineffectiveness with intent to wean off. Start escitalopram 5mg daily for mood, anxiety. Continue Vraylar 1.5mg daily for now. Patient educated on all medications including potential benefits, side effects, risks. Educated on proper dosing schedule and importance of compliance. 11/17/2023 ADHD (attention deficit hyperactivity disorder), combined type (ICD9-CM - 314.01) 11/26/2023 SAVANNA (generalized anxiety disorder) (ICD-10 - F41.1) 11/26/2023 MDD (major depressive disorder), recurrent severe, without psychosis (ICD-10 - F33.2) Stop Vraylar due to weight gain. Taper off of duloxetine-take 40mg daily for one week then stop. Increase escitalopram to 10mg daily for mood, anxiety. Start Trazodone 50-100mg qHS PRN for sleep. Patient educated on all medications including potential benefits, side effects, risks. Educated on proper dosing schedule and importance of compliance. 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 History: [place] 3.5 years, discharged September 2022 Legal History: Denied Family History of MH/ELAINA: anxiety and depression Physical Medical Conditions: tinnitus, plantar fasciitis, knee pain and swelling, migraines, sexual dysfunction Spiritual Beliefs: Religion Suicidal Ideation/Self Harm: Passive SI. Planned a suicide attempt by writing letters around [place] of 2020 and beginning of 2021. Was hospitalized at that time. Homicidal Ideation: Denied Access to Means (firearms, stockpiled medication, etc.): yes, locked away Chief Complaint: long story short, my friends and coworkers talked me into it. Enedina said it would be good for PTSD. Anxiety: Racing heart, tightness in chest, difficulty breathing. Some panic attacks but does not feel that they happen often, once every few months, feels he avoids them otherwise it would happen once every couple weeks. Racing thoughts, difficulty controlling worry, some ruminating thoughts. Irritable. Noted that he will pick at nails, scabs, and hair. GAD7 score of 18 Depression: PHQ9 score of 21. Flat affect Anger/Aggression : Noted that he used to get so angry that he would black out. States that has not happened in a long time. 4-5 years ago. Obsessions/Compu lsions: Denied Gris: Denied Psychosis: Denied Sleep: Difficulty falling asleep and staying asleep. Longest he has laid in bed without falling asleep is 4 hours. Typically takes 1-2 hours to fall asleep. Feels like he wakes 1-2 times an hour. More than 5 times in a night. Average of 5 hours of sleep a night, tries to get 8. Appetite: Feels like he is overeating. 3 large meals a day with snacks. Trauma: Flashbacks, dissociation back within the memory, nightmares. Hypervigilance , having to face doorways. Substance Use (type, last use, amount, frequency, withdrawal symptoms): Alcohol - 2-3 times a week. Often socially though noted a range from 2-6 or more drinks. Beer. Gambling/Other Addictive Behaviors: Denied ADLs (Hygiene, Chores, Cooking, Shopping): Difficulty finding time to be able to brush teeth and keeping room clean and organized. Interests/Skills /Hobbies: being outside, golf Strengths: I don't know. Limitations: passive SI, trauma history Goal(s) for Therapy: try to be a functioning normal jewel human being. Being in control of anxiety, depression, and PTSD. 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 History: [place] 3.5 years, discharged September 2022 Legal History: Denied Family History of MH/ELAINA: anxiety and depression Physical Medical Conditions: tinnitus, plantar fasciitis, knee pain and swelling, migraines, sexual dysfunction Spiritual Beliefs: Religion Suicidal Ideation/Self Harm: Passive SI. Planned a suicide attempt by writing letters around [place] of 2020 and beginning of 2021. Was hospitalized at that time. Homicidal Ideation: Denied Access to Means (firearms, stockpiled medication, etc.): yes, locked away Chief Complaint: long story short, my friends and coworkers talked me into it. Enedina said it would be good for PTSD. Anxiety: Racing heart, tightness in chest, difficulty breathing. Some panic attacks but does not feel that they happen often, once every few months, feels he avoids them otherwise it would happen once every couple weeks. Racing thoughts, difficulty controlling worry, some ruminating thoughts. Irritable. Noted that he will pick at nails, scabs, and hair. GAD7 score of 18 Depression: PHQ9 score of 21. Flat affect Anger/Aggression : Noted that he used to get so angry that he would black out. States that has not happened in a long time. 4-5 years ago. Obsessions/Compu lsions: Denied Gris: Denied Psychosis: Denied Sleep: Difficulty falling asleep and staying asleep. Longest he has laid in bed without falling asleep is 4 hours. Typically takes 1-2 hours to fall asleep. Feels like he wakes 1-2 times an hour. More than 5 times in a night. Average of 5 hours of sleep a night, tries to get 8. Appetite: Feels like he is overeating. 3 large meals a day with snacks. Trauma: Flashbacks, dissociation back within the memory, nightmares. Hypervigilance , having to face doorways. Substance Use (type, last use, amount, frequency, withdrawal symptoms): Alcohol - 2-3 times a week. Often socially though noted a range from 2-6 or more drinks. Beer. Gambling/Other Addictive Behaviors: Denied ADLs (Hygiene, Chores, Cooking, Shopping): Difficulty finding time to be able to brush teeth and keeping room clean and organized. Interests/Skills /Hobbies: being outside, golf Strengths: I don't know. Limitations: passive SI, trauma history Goal(s) for Therapy: try to be a functioning normal jewel human being. Being in control of anxiety, depression, and PTSD. 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 History: [place] 3.5 years, discharged September 2022 Legal History: Denied Family History of MH/ELAINA: anxiety and depression Physical Medical Conditions: tinnitus, plantar fasciitis, knee pain and swelling, migraines, sexual dysfunction Spiritual Beliefs: Religion Suicidal Ideation/Self Harm: Passive SI. Planned a suicide attempt by writing letters around [place] of 2020 and beginning of 2021. Was hospitalized at that time. Homicidal Ideation: Denied Access to Means (firearms, stockpiled medication, etc.): yes, locked away Chief Complaint: long story short, my friends and coworkers talked me into it. Enedina said it would be good for PTSD. Anxiety: Racing heart, tightness in chest, difficulty breathing. Some panic attacks but does not feel that they happen often, once every few months, feels he avoids them otherwise it would happen once every couple weeks. Racing thoughts, difficulty controlling worry, some ruminating thoughts. Irritable. Noted that he will pick at nails, scabs, and hair. GAD7 score of 18 Depression: PHQ9 score of 21. Flat affect Anger/Aggression : Noted that he used to get so angry that he would black out. States that has not happened in a long time. 4-5 years ago. Obsessions/Compu lsions: Denied Gris: Denied Psychosis: Denied Sleep: Difficulty falling asleep and staying asleep. Longest he has laid in bed without falling asleep is 4 hours. Typically takes 1-2 hours to fall asleep. Feels like he wakes 1-2 times an hour. More than 5 times in a night. Average of 5 hours of sleep a night, tries to get 8. Appetite: Feels like he is overeating. 3 large meals a day with snacks. Trauma: Flashbacks, dissociation back within the memory, nightmares. Hypervigilance , having to face doorways. Substance Use (type, last use, amount, frequency, withdrawal symptoms): Alcohol - 2-3 times a week. Often socially though noted a range from 2-6 or more drinks. Beer. Gambling/Other Addictive Behaviors: Denied ADLs (Hygiene, Chores, Cooking, Shopping): Difficulty finding time to be able to brush teeth and keeping room clean and organized. Interests/Skills /Hobbies: being outside, golf Strengths: I don't know. Limitations: passive SI, trauma history Goal(s) for Therapy: try to be a functioning normal jewel human being. Being in control of anxiety, depression, and PTSD. 12/24/2023 PTSD (post-traumatic stress disorder) (ICD-10 - F43.10) 1. Anxiety related to academic scheduling - Encourage the patient to use assertive communication with the academic department, using \ I\ statements to express frustration and request assistance. - Practice radical acceptance and develop coping strategies for dealing with the situation if it cannot be resolved immediately. 2. Relationship conflict and communication issues - Patient reported a recent argument with his girlfriend, which has been partially resolved. - Encourage the patient to continue practicing open and honest communication with his partner, using \ I\ statements and active listening techniques. - Suggest the patient consider couples therapy if communication issues persist or escalate. 3. Emotional regulation and coping strategies - Reinforce the importance of expressing emotions in a healthy and constructive manner, avoiding negative or critical language. - Encourage the patient to practice deep breathing, grounding techniques, and thought challenges during moments of heightened anger or frustration. - Continue to monitor the patient's emotional state and coping strategies in future sessions. 12/24/2023 MDD (major depressive disorder), recurrent severe, without psychosis (ICD-10 - F33.2) 1. Anxiety related to academic scheduling - Encourage the patient to use assertive communication with the academic department, using \ I\ statements to express frustration and request assistance. - Practice radical acceptance and develop coping strategies for dealing with the situation if it cannot be resolved immediately. 2. Relationship conflict and communication issues - Patient reported a recent argument with his girlfriend, which has been partially resolved. - Encourage the patient to continue practicing open and honest communication with his partner, using \ I\ statements and active listening techniques. - Suggest the patient consider couples therapy if communication issues persist or escalate. 3. Emotional regulation and coping strategies - Reinforce the importance of expressing emotions in a healthy and constructive manner, avoiding negative or critical language. - Encourage the patient to practice deep breathing, grounding techniques, and thought challenges during moments of heightened anger or frustration. - Continue to monitor the patient's emotional state and coping strategies in future sessions. 11/12/2023 SAVANNA (generalized anxiety disorder) (ICD-10 - F41.1) 12/24/2023 MDD (major depressive disorder), recurrent severe, without psychosis (ICD-10 - F33.2) 01/07/2024 MDD (major depressive disorder), recurrent severe, without psychosis (ICD-10 - F33.2) 02/25/2024 MDD (major depressive disorder), recurrent severe, without psychosis (ICD-10 - F33.2) 03/24/2024 MDD (major depressive disorder), recurrent severe, without psychosis (ICD-10 - F33.2) 05/03/2024 MDD (major depressive disorder), recurrent severe, without psychosis (ICD-10 - F33.2) Common side effects of Wellbutrin include insomnia, increased anxiety, nausea, dizziness, decreased appetite, restlessness, irritability and anger, increased sweating or hot flashes, tremors, joint pain. Wellbutrin is not recommended in individuals with a history of seizures. If side effects persist, please contact the office. 06/13/2024 SAVANNA (generalized anxiety disorder) (ICD-10 - F41.1) 06/13/2024 MDD (major depressive disorder), recurrent severe, without [...] (generalized anxiety disorder) (ICD-10 - F41.1) 07/11/2024 MDD (major depressive disorder), recurrent severe, [...] common with first generation antipsychotics) and more. 05/03/2024 SAVANNA (generalized anxiety disorder) (ICD-10 - F41.1) 07/11/2024 Primary insomnia (ICD-10 - F51.01) Sleep study approved by insurance, pending scheduling 06/13/2024 Primary insomnia (ICD-10 - F51.01) Sleep study approved by insurance, pending scheduling 03/24/2024 SAVANNA (generalized anxiety disorder) (ICD-10 - F41.1) 02/25/2024 SAVANNA (generalized anxiety disorder) (ICD-10 - F41.1) 01/07/2024 SAVANNA (generalized anxiety disorder) (ICD-10 - F41.1) 12/24/2023 SAVANNA (generalized anxiety disorder) (ICD-10 - F41.1) 12/14/2023 MDD (major depressive disorder), recurrent severe, without psychosis (ICD-10 - F33.2) Preferred name: Fabio Pronouns: he/him Sexual Orientation: straight Marital Status: single Living Arrangement: parents Children: 0 Support System: sister, girlfriend, sometimes parents Highest Level of Education: some college 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 History: [place] 3.5 years, discharged September 2022 Legal History: Denied Family History of MH/ELAINA: anxiety and depression Physical Medical Conditions: tinnitus, plantar fasciitis, knee pain and swelling, migraines, sexual dysfunction Spiritual Beliefs: Religion Suicidal Ideation/Self Harm: Passive SI. Planned a suicide attempt by writing letters around [place] of 2020 and beginning of 2021. Was hospitalized at that time. Homicidal Ideation: Denied Access to Means (firearms, stockpiled medication, etc.): yes, locked away Chief Complaint: long story short, my friends and coworkers talked me into it. Enedina said it would be good for PTSD. Anxiety: Racing heart, tightness in chest, difficulty breathing. Some panic attacks but does not feel that they happen often, once every few months, feels he avoids them otherwise it would happen once every couple weeks. Racing thoughts, difficulty controlling worry, some ruminating thoughts. Irritable. Noted that he will pick at nails, scabs, and hair. GAD7 score of 18 Depression: PHQ9 score of 21. Flat affect Anger/Aggression : Noted that he used to get so angry that he would black out. States that has not happened in a long time. 4-5 years ago. Obsessions/Compu lsions: Denied Gris: Denied Psychosis: Denied Sleep: Difficulty falling asleep and staying asleep. Longest he has laid in bed without falling asleep is 4 hours. Typically takes 1-2 hours to fall asleep. Feels like he wakes 1-2 times an hour. More than 5 times in a night. Average of 5 hours of sleep a night, tries to get 8. Appetite: Feels like he is overeating. 3 large meals a day with snacks. Trauma: Flashbacks, dissociation back within the memory, nightmares. Hypervigilance , having to face doorways. Substance Use (type, last use, amount, frequency, withdrawal symptoms): Alcohol - 2-3 times a week. Often socially though noted a range from 2-6 or more drinks. Beer. Gambling/Other Addictive Behaviors: Denied ADLs (Hygiene, Chores, Cooking, Shopping): Difficulty finding time to be able to brush teeth and keeping room clean and organized. Interests/Skills /Hobbies: being outside, golf Strengths: I don't know. Limitations: passive SI, trauma history Goal(s) for Therapy: try to be a functioning normal ejwel human being. Being in control of anxiety, depression, and PTSD. 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 History: [place] 3.5 years, discharged September 2022 Legal History: Denied Family History of MH/ELAINA: anxiety and depression Physical Medical Conditions: tinnitus, plantar fasciitis, knee pain and swelling, migraines, sexual dysfunction Spiritual Beliefs: Religion Suicidal Ideation/Self Harm: Passive SI. Planned a suicide attempt by writing letters around [place] of 2020 and beginning of 2021. Was hospitalized at that time. Homicidal Ideation: Denied Access to Means (firearms, stockpiled medication, etc.): yes, locked away Chief Complaint: long story short, my friends and coworkers talked me into it. Enedina said it would be good for PTSD. Anxiety: Racing heart, tightness in chest, difficulty breathing. Some panic attacks but does not feel that they happen often, once every few months, feels he avoids them otherwise it would happen once every couple weeks. Racing thoughts, difficulty controlling worry, some ruminating thoughts. Irritable. Noted that he will pick at nails, scabs, and hair. GAD7 score of 18 Depression: PHQ9 score of 21. Flat affect Anger/Aggression : Noted that he used to get so angry that he would black out. States that has not happened in a long time. 4-5 years ago. Obsessions/Compu lsions: Denied Gris: Denied Psychosis: Denied Sleep: Difficulty falling asleep and staying asleep. Longest he has laid in bed without falling asleep is 4 hours. Typically takes 1-2 hours to fall asleep. Feels like he wakes 1-2 times an hour. More than 5 times in a night. Average of 5 hours of sleep a night, tries to get 8. Appetite: Feels like he is overeating. 3 large meals a day with snacks. Trauma: Flashbacks, dissociation back within the memory, nightmares. Hypervigilance , having to face doorways. Substance Use (type, last use, amount, frequency, withdrawal symptoms): Alcohol - 2-3 times a week. Often socially though noted a range from 2-6 or more drinks. Beer. Gambling/Other Addictive Behaviors: Denied ADLs (Hygiene, Chores, Cooking, Shopping): Difficulty finding time to be able to brush teeth and keeping room clean and organized. Interests/Skills /Hobbies: being outside, golf Strengths: I don't know. Limitations: passive SI, trauma history Goal(s) for Therapy: try to be a functioning normal jewel human being. Being in control of anxiety, depression, and PTSD. 11/26/2023 Attention-defic it hyperactivity disorder, combined type (ICD-10 - F90.2) 11/12/2023 Difficulty concentrating (ICD-10 - R41.840) Schedule for ADHD testing to rule in or rule out diagnosis. 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 History: [place] 3.5 years, discharged September 2022 Legal History: Denied Family History of MH/ELAINA: anxiety and depression Physical Medical Conditions: tinnitus, plantar fasciitis, knee pain and swelling, migraines, sexual dysfunction Spiritual Beliefs: Religion Suicidal Ideation/Self Harm: Passive SI. Planned a suicide attempt by writing letters around [place] of 2020 and beginning of 2021. Was hospitalized at that time. Homicidal Ideation: Denied Access to Means (firearms, stockpiled medication, etc.): yes, locked away Chief Complaint: long story short, my friends and coworkers talked me into it. Enedina said it would be good for PTSD. Anxiety: Racing heart, tightness in chest, difficulty breathing. Some panic attacks but does not feel that they happen often, once every few months, feels he avoids them otherwise it would happen once every couple weeks. Racing thoughts, difficulty controlling worry, some ruminating thoughts. Irritable. Noted that he will pick at nails, scabs, and hair. GAD7 score of 18 Depression: PHQ9 score of 21. Flat affect Anger/Aggression : Noted that he used to get so angry that he would black out. States that has not happened in a long time. 4-5 years ago. Obsessions/Compu lsions: Denied Gris: Denied Psychosis: Denied Sleep: Difficulty falling asleep and staying asleep. Longest he has laid in bed without falling asleep is 4 hours. Typically takes 1-2 hours to fall asleep. Feels like he wakes 1-2 times an hour. More than 5 times in a night. Average of 5 hours of sleep a night, tries to get 8. Appetite: Feels like he is overeating. 3 large meals a day with snacks. Trauma: Flashbacks, dissociation back within the memory, nightmares. Hypervigilance , having to face doorways. Substance Use (type, last use, amount, frequency, withdrawal symptoms): Alcohol - 2-3 times a week. Often socially though noted a range from 2-6 or more drinks. Beer. Gambling/Other Addictive Behaviors: Denied ADLs (Hygiene, Chores, Cooking, Shopping): Difficulty finding time to be able to brush teeth and keeping room clean and organized. Interests/Skills /Hobbies: being outside, golf Strengths: I don't know. Limitations: passive SI, trauma history Goal(s) for Therapy: try to be a functioning normal jewel human being. Being in control of anxiety, depression, and PTSD. 12/24/2023 Attention-defic it hyperactivity disorder, combined type (ICD-10 - F90.2) 01/07/2024 Primary insomnia (ICD-10 - F51.01) 01/07/2024 Attention-defic it hyperactivity disorder, combined type (ICD-10 - F90.2) 02/25/2024 Attention-defic it hyperactivity disorder, combined type (ICD-10 - F90.2) 03/24/2024 Attention-defic it hyperactivity disorder, combined type (ICD-10 - F90.2) 05/03/2024 Attention-defic it hyperactivity disorder, combined type (ICD-10 - F90.2) 07/11/2024 ADHD (attention deficit hyperactivity disorder), combined type (ICD-10 - F90.2) Electronic Prior Authorization was requested for Qelbree 200 MG Capsule Extended Release 24 Hour. Provider can order medication once approval received. 07/11/2024 PTSD (post-traumatic stress disorder) (ICD-10 - F43.10) 05/03/2024 Primary insomnia (ICD-10 - F51.01) 03/24/2024 Primary insomnia (ICD-10 - F51.01) 02/25/2024 Primary insomnia (ICD-10 - F51.01) 11/26/2023 Other Start atomoxeti ne 40mg daily for ADHD symptoms. 12/24/2023 Other Decrease escitalopram to 5mg daily. Start lamictal 25mg daily for 4 days, then 50mg daily for mood, anxiety. Consider discontinuing escitalopram if lamictal effective. Increase atomoxetine to 60mg daily. Patient educated on all medications including potential benefits, side effects, risks. Educated on proper dosing schedule and importance of compliance. Continue counseling with Tawnya. 01/07/2024 Other Increase Lamictal-take 75mg daily for one week, then 100mg daily. Decrease atomoxetine to 40mg daily, possibly contributing to intrusive thoughts, anxiety. Patient educated on all medications including potential benefits, side effects, risks. Educated on proper dosing schedule and importance of compliance. Referral made to [facility] [place] [facility]. 02/25/2024 Other Poor response to SSRI/SNRI. Continue lamictal 100mg daily Start wellbutrin 150mg daily. Discussed monitoring for increased anxiety, irritability. Patient educated on all medications including potential benefits, side effects, risks. Educated on proper dosing schedule and importance of compliance. 03/24/2024 Other Has been off of medication without significant change in symptoms, discontinue lamictal, escitalopram. Has not started Wellbutrin, agreeable to start. Will follow up in 4 weeks to re-evaluate effectiveness. Consider Auvelity, TMS, esketamine if poor response. Patient educated on all medications including potential benefits, side effects, risks. Educated on proper dosing schedule and importance of compliance. 05/03/2024 Other Increase Wellbutrin to 300mg daily for mood Patient educated on all medications including potential benefits, side effects, risks. Educated on proper dosing schedule and importance of compliance. -Assessment and treatment plan reviewed with patient. -Compliance with treatment plan importance discussed. -Discussed the risks/benefits of this medication -Discussed medication side effects. -Contact office if symptoms worsen. -Discussed that it can take up to 6-8 weeks to see full therapeutic effects of psychotropic medications. -[place] [phone]. 06/13/2024 Other Discontinue Wellbutrin due to weight loss Start Abilify 2.5mg daily for one week then 5mg daily Start propranolol 10mg BID PRN for anxiety Patient educated on all medications including potential benefits, side effects, risks. Educated on proper dosing schedule and importance of compliance. -Assessment and treatment plan reviewed with patient. -Compliance with treatment plan importance discussed. -Discussed the risks/benefits of this medication -Discussed medication side effects. -Contact office if symptoms worsen. -Discussed that it can take up to 6-8 weeks to see full therapeutic effects of psychotropic medications. -[place] [phone]. 07/11/2024 Other Depression improving, continue Abilify 5mg [...] see full therapeutic effects of psychotropic medications. [place] [phone]. Plan Of Treatment Pending Test Test Name Order Date UDT 11/12/2023 ADHD Testing 11/12/2023 Next Appt Details Provider Name:Enedina Howell, 08/08/2024 08:15:00 AM, [address], [address], [place], [address], Insurance Providers Payer Name Payer Address Payer Phone Subscriber Number Group Number Insured Name Patient Relationship to Insured Coverage Start Date Coverage End Date Dyana PERALTA [id number] [place]ES[place] [phone] [id number] Fabio Roblero Self - patient is the insured Medical (General) History Medical History History ICD Code Anxiety Insmonia Migraines Past Psychiatric History: Anxiety Disord er,PTSD,Major Depressive Episode undefined abdominal aortic aneurysm: No atrial fibrillation: No chronic fatigue syndrome: No essential tremor: No hyperlipidemia: No hypertension: No Parkinson's disease: No restless leg syndrome: No stroke: No subdural hematoma: No type 1 diabetes mellitus: No type 2 diabetes mellitus: No vitamin B12 deficiency: No vitamin D deficiency: No Past Psychiatric History: An xiety Disorder,Panic Disorder,PTSD,Major Depressive Episode
--- OUTSIDE RECORDS SUMMARY | 2024-07-21 11:18 | XMS_ITS ---
Author Organization [facility] Address [address] [facility] [address] [place] [address] Care Team Providers Care Integrity Analyst Name Role Phone JUDE OTERO MDSHTI Primary Care Provider Enedina Melvin Unavailable [phone] REASON FOR VISIT Therapy Social History Sex Assigned At : Social History Observation Description Sex Assigned At Male Encounters Encounter Location Date Provider Diagnosis [facility] [address] [place] [address] 07/11/2024 Enedina Howell Plan Of Treatment Next Appt Details Provider Name:Enedina Howell, 08/08/2024 08:15:00 AM, [address], [facility] [address], [place], [address], Progress Notes * Fabio ROBLERO IIDOB: [birth year] (23 yo M)Acc No.[id number]:07/11/2024 Patient: Fabio MONIQUE II :2000 A ge:23 Y S ex:Male Address:[address] [place], [address] * * Date:
[2024-07-21 11:43] VITALS: O2SAT 100
[2024-07-21 11:48] VITALS: BP 135/89; PULSE 72; RESP 17; O2SAT 100
[2024-07-21 11:49] VITALS: PULSE 75
[2024-07-21] MEDS: ASPIRIN 81 MG CHEWABLE TABLET 324 MG PO (11:56)
--- NOTE | 2024-07-21 12:41 | ED_ITS ---
HPI - Chest Pain General Chief Complaint: Chest Pain Stated Complaint: CP Time Seen by Provider: 07/21/24 12:35 History of Present Illness HPI narrative: Pt presents with chest pressure starting around 8 or 9 and lasting and hour and a half and then calming and reoccuring. Pt feels fine now. Pt did have symptoms during ekg. Pt has no FH of CAD and no risk factors. Related Data Home Medications ?Medication ?Instructions ?Recorded ?Confirmed ?Last Taken ?Type aripiprazole 5 mg oral film 5 mg PO DAILY 06/29/24 06/29/24 Unknown History quetiapine 25 mg tablet 25 mg PO QHS 06/29/24 06/29/24 Unknown History Allergies Allergy/AdvReac Type Severity Reaction Status Date / Time No Known Allergies Allergy Verified 06/29/24 14:03 Review of Systems 2 Review of Systems: All systems reviewed & are unremarkable except as noted in HPI and below PMFSH Past Medical History Medical History (Updated 07/21/24 @ 12:45 by Elke Weinstein III, DO) Pharyngitis Sinusitis Plantar fasciitis, bilateral Right knee pain Male hypogonadism Insomnia Anxiety and depression Migraines Left knee injury Surgical History Surgical History H/O wisdom tooth extraction Family History Family History Father Asthma Cerebrovascular accident Mother Chronic migraine Sibling No problems noted. Other Diabetes mellitus Family history of coronary artery disease Family history of malignant neoplasm Social History Social History Smoking status: Former smoker Tobacco type: e-cigarettes/vaping Second hand tobacco smoke exposure: Yes Smoking end date: 05/18/19 Alcohol intake: current Substance use: never Substance use type: does not use Do You Feel Safe in your Home?: Yes Lack of Transportation: No Lack of Food: Never True Current Housing: I Have Housing Concerned About Future Housing: No Difficulty Paying Gas/Electric Bills: No Difficulty Paying for Meds: No Currently Unemployed: No Education: Trade/Vocational Certificate Difficulty w/ Childcare or Family Care: No Living arrangements: with family Occupation/Education: occupation 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 Gender identity (if verbalized by the patient): Male Exam 2 Const: General: healthy appearing and no acute distress Nutritional Appearance: well nourished Orientation/consciousness: patient oriented x3 Limitations: no limitations Neck: Neck: normal visual inspection Chest: Chest palpation & inspection: normal inspection of the chest Resp: Effort & Inspection: normal respiratory effort Auscultation: clear to auscultation bilaterally Cardio: Rate: regular rate Rhythm: regular rhythm GI: Auscultation: normal bowel sounds Skin: General skin exam: normal color Rashes: no rashes Wounds: no wounds Neuro: General: patient oriented x3, moves all extremities, no meningeal signs, no focal motor deficits and CN's II-XI intact bilaterally Cranial nerves: Yes Nystagmus not present Speech: normal speech Extrem: General: normal to inspection and no clubbing, cyanosis or edema Psych: Mental Status: mental status grossly normal Affect: normal affect Attitude: cooperative Course Vital Signs Vital signs: Vital Signs Temperature 97.2 F L 07/21/24 10:15 Pulse Rate 82 07/21/24 10:15 Respiratory Rate 16 07/21/24 10:15 Blood Pressure 129/77 07/21/24 10:15 Pulse Oximetry 100 07/21/24 10:15 Oxygen Delivery Room Air 07/21/24 10:15 Temperature 97.2 F L 07/21/24 10:15 Pulse Rate 65 07/21/24 13:29 Respiratory Rate 15 07/21/24 13:29 Blood Pressure 115/75 07/21/24 13:29 Pulse Oximetry 97 07/21/24 13:29 Oxygen Delivery Room Air 07/21/24 11:43 MDM - Chest Pain MDM Narrative Medical decision making narrative: Pt presents with CP, somewhat atypical but will do cardiac work up to rule out acs or pulmonary etiology. labs and cxr and trop neg. musculoskeletal. Lab Data 07/21/24 10:18 07/21/24 10:18 Labs: Lab Results 07/21/24 07/21/24 Range/Units 10:18 13:01 WBC 5.4 (4.5-10.0) K/mm3 RBC 5.25 (4.6-6.20) M/mm3 Hgb 16.6 (14.0-18.0) g/dL Hct 49.1 (42.0-52.0) % MCV 93.5 (80-100) fl MCH 31.6 (26-34) pg MCHC 33.8 (32-36) g/dl RDW 13.2 (11.5-14.5) % Plt Count 240 (150-375) k/mm3 MPV 10.1 (7.4-10.4) fl Immature Gran % (Auto) 0.4 (0-0.5) % Neut % (Auto) 60.4 (45.5-73.1) % Lymph % (Auto) 30.8 (18.3-44.2) % [place] % (Auto) 5.2 (2.6-8.5) % Eos % (Auto) 2.8 (0-4.4) % Baso % (Auto) 0.4 (0.2-1.2) % Lymph # (Auto) 1.67 (0.9-3.2) K/mm3 [place] # (Auto) 0.3 (0.1-0.6) K/mm3 Eos # (Auto) 0.2 (0-0.3) K/mm3 Baso # (Auto) 0.0 (0.0-0.1) K/mm3 Abs Immat Gran (auto) 0.02 (0.00-0.031) K/mm3 Absolute Neuts (auto) 3.3 (1.3-6.7) K/mm3 Absolute Nucleated RBC 0.000 (0.0-0.012) K/mm3 Nucleated RBC % 0.0 (0.0-0.2) % PT 13.3 (11.1-14.7) Seconds INR 1.0 APTT 24.9 (22.3-36.8) Seconds Sodium 139 (137-145) mmol/L Potassium 3.7 (3.4-5.0) mmol/L Chloride 102 (98-107) mmol/L Carbon Dioxide 28 (22-30) mmol/L Anion Gap 9 (4-12) mmol/L BUN 11 (9-20) mg/dL Creatinine 0.86 (0.7-1.3) mg/dL Estim Creat Clear Calc 119 ml/min Estimated GFR > 60 (59 - ) Glucose 114 H (65-110) mg/dL Calcium 9.9 (8.4-10.2) mg/dL Total Bilirubin 0.7 (0.2-1.3) mg/dL AST 25 (17-59) U/L ALT 40 (6-50) U/L Alkaline Phosphatase 78 (38-126) U/L Troponin I < 0.012 < 0.012 (0.000-0.034) ng/mL Total Protein 8.0 (6.3-8.2) g/dL Albumin 4.7 (3.5-5.1) g/dL Lipase 200 (23-300) U/L Discharge Plan Discharge Clinical Impression: Acute chest wall pain Patient Disposition: Home, Self-Care Condition: Stable Instructions: Antibiotic Form, Chest Wall Pain (ED) Patient Language: Bengali Prescriptions: New naproxen [Naprosyn] 500 mg tablet 500 mg PO BID Qty: 20 0RF cyclobenzaprine 10 mg tablet 10 mg PO TID Qty: 14 0RF No Action rizatriptan 10 mg tablet 10 mg PO .COMPLEX Qty: 20 3RF Rx Instructions: 10 mg orally Take 1-2 tablets at onset of migraine, ok to repeat after 2 hours. Do not exceed 30mg in 24 hours.; meloxicam 7.5 mg tablet 7.5 mg PO DAILY Qty: 20 3RF quetiapine 25 mg tablet 25 mg PO QHS aripiprazole 5 mg film 5 mg PO DAILY prednisone 10 mg tablet 10 mg PO TID Qty: 15 0RF Rx Instructions: Take 3 times daily for 5 days. azithromycin 250 mg tablet See Rx Instructions PO .COMPLEX Qty: 6 0RF Rx Instructions: For 250 mg dose pack: take 500 mg today (day 1), then 250 mg for 4 days (days 2-5) PO sildenafil (pulm.hypertension) 20 mg tablet 20 mg PO DAILY PRN (Reason: sexual activity) Qty: 30 3RF Rx Instructions: Take 1-5 tablets daily, PRN triamcinolone acetonide 0.5 % cream 1 applic topical BID Qty: 60 0RF Rx Instructions: do not apply on face Follow-up/Referrals: Harley Navas MD [Primary Care Provider] - Stand Alone Forms: Work/School Release IP
--- NOTE | 2024-07-21 13:10 | ECG_ITS ---
Test Date: 2024-07-21 12:55:23 Measurements Intervals [place] Rate: 66 P: 40 WV: 156 QRS: 42 QRSD: 94 T: 32 QT: 353 QTc: 371 Interpretive Statements SINUS RHYTHM Compared to ECG 07/21/2024 10:13:20 No significant changes Electronically Signed On 07-21-2024 14:12:02 PROJECT SCIENTIST by Jon Villarreal M.D.
[2024-07-21 13:29] VITALS: BP 115/75; PULSE 65; RESP 15; O2SAT 97
[2024-07-21 13:35] LABS: Troponin I < 0.012 ng/mL (0.000-0.034)
--- OUTSIDE RECORDS SUMMARY | 2024-07-21 14:18 | XMS_ITS | Clinical Summary ---
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
== END 2024-07-21 13:30 | disposition home or self-care (01) ==
PROVIDERS: Emergency Medicine; Emergency Provider Emergency Medicine; PCP Family Medicine
DX: R07.89 Other chest pain (principal); F41.9 Anxiety disorder, unspecified; F32.A Depression, unspecified; Z87.891 Personal history of nicotine dependence; Z79.899 Other long term (current) drug therapy
CPT/HCPCS: 36415; 71046; 80053; 83690; 84484; 85025; 85610; 85730; 93005; 99284; A9270